=== PATIENT | female | born 1965 | race Caucasian/White ===

== ENCOUNTER 2019-03-20 09:35 | Day surgery (SDC) | payer OTHER ==
[~2019-03-20 09:35] MED LIST: CHONDR SU A NA/HYALUR INTRAOC KIT (SURGICARE) ONE; EPINEPHRINE INJ/PF 1 MG/1 ML AMPULE ONE; KETOROLAC TROMETHAMINE 0.45% 4 DROP/0.4 ML DROPERETTE OS PRN; LIDOCAINE 1% INJ-PF (10 MG/ML) 30 ML SDV ONE
[2019-03-20] MEDS: TETRACAINE HCL 0.5% OPH SOLN 0.6 ML DROPERETTE OS PRN ×3 (10:50→11:36)
[2019-03-20] MEDS: BESIFLOXACIN HCL 0.6% OPH SUSP 5 ML BOTTLE OS PRN ×4 (10:51→11:47)
[2019-03-20] MEDS: TROPICAMIDE 1% OPH SOLN 3 ML OS PRN ×3 (10:51→11:12)
[2019-03-20] MEDS: CYCLOPENTOLATE 0.2%/PHENYLEPHRINE 1% OPH SOLN 2 ML OS PRN ×3 (10:51→11:12)
[2019-03-20] MEDS ORDERED: LIDOCAINE 1%/PHENYLEPHRINE 1.5% 1 ML VIAL ONE (11:05)
[2019-03-20] MEDS ORDERED: MIDAZOLAM 2 MG/2 ML INJ ONE (11:26)
[2019-03-20] MEDS: TOBRAMYCIN SULFATE/DEXAMETH OPH OINTMENT 3.5 GM ONE ×2 (11:47)
[2019-03-20] MEDS: DORZOLAMIDE HCL 2%/TIMOLOL MALEAT 0.5% OPH SOLN 10 ML OS PRN ×2 (11:47)
== END 2019-03-20 12:19 | disposition home or self-care (01) ==
LOC: SC 09:35
PROVIDERS: ATTEND Ophthalmology
DX: H25.12 Age-related nuclear cataract, left eye (principal); Z79.899 Other long term (current) drug therapy
CPT/HCPCS: 66984; V2632; J2250; J3490 ×2; J0171; J2370; 142

== ENCOUNTER 2019-04-03 07:06 | Day surgery (SDC) | payer OTHER ==
[~2019-04-03 07:06] MED LIST changes: -CHONDR SU A NA/HYALUR INTRAOC KIT (SURGICARE) ONE; -EPINEPHRINE INJ/PF 1 MG/1 ML AMPULE ONE; +KETOROLAC TROMETHAMINE 0.45% 4 DROP/0.4 ML DROPERETTE OD PRN; -KETOROLAC TROMETHAMINE 0.45% 4 DROP/0.4 ML DROPERETTE OS PRN; -LIDOCAINE 1% INJ-PF (10 MG/ML) 30 ML SDV ONE
[2019-04-03] MEDS ORDERED: LIDOCAINE 1% INJ-PF (10 MG/ML) 30 ML SDV ONE (07:21)
[2019-04-03] MEDS: CYCLOPENTOLATE 0.2%/PHENYLEPHRINE 1% OPH SOLN 2 ML OD PRN ×3 (07:51→08:12)
[2019-04-03] MEDS: TROPICAMIDE 1% OPH SOLN 3 ML OD PRN ×3 (07:51→08:12)
[2019-04-03] MEDS: BESIFLOXACIN HCL 0.6% OPH SUSP 5 ML BOTTLE OD PRN ×4 (07:52→08:36)
[2019-04-03] MEDS: TETRACAINE HCL 0.5% OPH SOLN 0.6 ML DROPERETTE OD PRN ×3 (07:53→08:18)
[2019-04-03] MEDS ORDERED: MIDAZOLAM 2 MG/2 ML INJ ONE (08:12)
[2019-04-03] MEDS: EPINEPHRINE INJ/PF 1 MG/1 ML AMPULE ONE ×2 (08:20→08:25)
[2019-04-03] MEDS: LIDOCAINE 1%/PHENYLEPHRINE 1.5% 1 ML VIAL ONE ×2 (08:20→08:25)
[2019-04-03] MEDS: CHONDR SU A NA/HYALUR INTRAOC KIT (SURGICARE) ONE ×2 (08:20→08:25)
[2019-04-03] MEDS: TOBRAMYCIN SULFATE/DEXAMETH OPH OINTMENT 3.5 GM ONE ×2 (08:20→08:36)
[2019-04-03] MEDS ORDERED: FENTANYL CITRATE INJ/PF 100 MCG/2 ML AMPUL ONE (08:28)
== END 2019-04-03 09:08 | disposition home or self-care (01) ==
LOC: SC 07:06
PROVIDERS: ATTEND Ophthalmology
DX: H25.11 Age-related nuclear cataract, right eye (principal); Z98.42 Cataract extraction status, left eye
CPT/HCPCS: 66984; V2632; J2250; J3490 ×2; J0171; J3010; J2370; 142